=== PATIENT | female | born 1985 | race Caucasian/White ===

== ENCOUNTER 2021-01-02 22:16 | Emergency (ER) | payer OTHER ==
[2021-01-03] MEDS ORDERED: CARAFATE1 GM/10 ML PO (01:47)
[2021-01-03] MEDS ORDERED: PROTONIX40 MG PO (01:47)
== END 2021-01-03 01:56 | disposition home or self-care (01) ==
LOC: ER1 22:16
DX: R13.10 Dysphagia, unspecified (principal); R07.0 Pain in throat; K21.9 Gastro-esophageal reflux disease without esophagitis; F17.200 Nicotine dependence, unspecified, uncomplicated
CPT/HCPCS: 99282